=== PATIENT | female | born 1980 | race African-American/Black ===

== ENCOUNTER 2017-10-05 18:45 | Emergency (ER) | payer BC, OTHER ==
--- NOTE | 2017-10-05 19:29 | RAD ---
RIGHT HAND THREE VIEWS: 10/05/17 HISTORY: Trauma to hand. Thumb pain. There are no signs of fracture or dislocation. IMPRESSION: Negative right hand. POS: [facility]
[2017-10-05] MEDS ORDERED: HYDROcodone/Acetaminophen 10/325 mg Tablet ONE (19:42)
== END 2017-10-05 19:46 | disposition home or self-care (01) ==
LOC: MADERS 18:45
DX: S60.221A Contusion of right hand, initial encounter (principal); K21.9 Gastro-esophageal reflux disease without esophagitis; I10 Essential (primary) hypertension; Z79.899 Other long term (current) drug therapy; W22.01XA Walked into wall, initial encounter

== ENCOUNTER 2019-04-09 22:39 | Emergency (ER) | payer BC ==
[2019-04-09] MEDS ORDERED: HYDROcodone/Acetaminophen 10/325 mg Tablet ONE (22:51)
[2019-04-09] MEDS ORDERED: Acetaminophen 325 MG TAB ONE (22:52)
== END 2019-04-09 23:03 | disposition home or self-care (01) ==
LOC: MADERS 22:39
DX: G89.18 Other acute postprocedural pain (principal); M25.531 Pain in right wrist; G47.30 Sleep apnea, unspecified; K21.9 Gastro-esophageal reflux disease without esophagitis; I10 Essential (primary) hypertension; Z79.899 Other long term (current) drug therapy
CPT/HCPCS: 99283

== ENCOUNTER 2019-07-10 22:45 | Emergency (ER) | payer BC | END 2019-07-10 23:08 | disposition home or self-care (01) | LOC: MADERS 22:45 | DX: H92.02 Otalgia, left ear (principal); K21.9 Gastro-esophageal reflux disease without esophagitis; I10 Essential (primary) hypertension; G47.30 Sleep apnea, unspecified; Z79.899 Other long term (current) drug therapy | CPT/HCPCS: 99281 ==

== ENCOUNTER 2019-12-03 23:52 | Emergency (ER) | payer BC ==
--- NOTE | 2019-12-04 08:25 | RAD ---
XR Ankle Lt 3 View STANDARD INDICATION: Left ankle injury COMPARISON: None. FINDINGS: Bones: No acute fracture or subluxation demonstrated. There is moderate enthesopathic change off the posterior and plantar calcaneus Ankle mortise: Symmetric. Talar Dome: Intact. Subtalar joint: Normal. Visualized hindfoot: Normal. Periarticular soft tissues: Normal. IMPRESSION: 1. No acute fracture or subluxation demonstrated.
== END 2019-12-04 00:34 | disposition home or self-care (01) ==
LOC: MADERS 23:52
DX: S93.402A Sprain of unspecified ligament of left ankle, initial encounter (principal); K21.9 Gastro-esophageal reflux disease without esophagitis; I10 Essential (primary) hypertension; Z79.899 Other long term (current) drug therapy; X50.9XXA Other and unspecified overexertion or strenuous movements or postures, initial encounter

== ENCOUNTER 2020-04-08 14:37 | Outpatient (CLI) | payer BC ==
--- NOTE | 2020-04-08 14:59 | RAD ---
Exam: XR Shoulder Lt 3 View STANDARD HISTORY: Shoulder pain for months. No history of trauma. COMPARISON: None FINDINGS: There is minimal left acromioclavicular joint osteoarthritis. No acute fracture, dislocation, or other acute osseous abnormality is identified. IMPRESSION: No acute osseous abnormality is identified.
== END 2020-04-08 14:38 | disposition home or self-care (01) ==
LOC: MADRAD 14:37
PROVIDERS: ATTEND Family Medicine
DX: M54.10 Radiculopathy, site unspecified (principal); M25.512 Pain in left shoulder

== ENCOUNTER 2020-12-25 22:24 | Emergency (ER) | payer BC, MEDICAID ==
[2020-12-25 23:29] LABS: #Lymphocytes 1.7 thou/uL (1.20-3.40); #Monocytes 0.4 thou/uL (0.11-0.59); #Neutrophils 2.2 thou/uL (1.40-6.50); %Basophils 1.1 % (0.0-1.0); %Eosinophils 0.6 % (0.0-10.0); %Lymphocytes 39.7 % (21.0-51.0); %Monocytes 8.5 % (0.0-10.0); %Neutrophils 50.1 % (42.0-75.0); Hemoglobin 13.7 g/dL (12.0-16.0); Mean Corpuscular HGB CONC 32.5 g/dL (32.0-36.0); Mean Corpuscular Hemoglobin 28.5 pg (27.0-31.0); Mean Corpuscular Volume 87.9 fL (78.0-98.0); Mean Platelet Volume 7.7 fL (7.4-10.4); Platelet Count 222 thou/uL (130-400); RBC Distribution Width 12.4 % (11.5-14.5); Red Blood Cell (RBC) Count 4.79 mill/uL (4.20-5.40); White Blood Cell (WBC) Count 4.3 thou/uL (4.8-10.8)
[2020-12-25 23:34] LABS: BHCG - Serum Negative (NEGATIVE); Pregs Control Background? CLEAR/WHITE (CLR/WHITE); Pregs Control Bar Appear? YES (CONTROL BAR)
[2020-12-25 23:49] LABS: ALT (SGPT) 16 U/L (8-55); AST (SGOT) 18 U/L (5-34); Albumin 3.9 g/dL (3.5-5.0); Alkaline Phosphatase 68 U/L (40-110); Anion Gap 15 mmol/L (10-20); BUN (Urea Nitrogen) 15 mg/dL (7.0-18.7); Bilirubin, Total 0.3 mg/dL (0.2-1.2); CK (CPK) 224 U/L (29-168); Calc. Creatinine Clearance 0 mL/min (70-130); Calcium 8.9 mg/dL (7.8-10.44); Carbon Dioxide 26 mmol/L (22-29); Chloride 101 mmol/L (98-107); Globulin 4.4 g/dL (2.4-3.5); Glucose 110 mg/dL (70-105); Lipase 34 U/L (8-78); Potassium 3.1 mmol/L (3.5-5.1); Protein, Total 8.3 g/dL (6.0-8.3); Sodium 139 mmol/L (136-145)
[2020-12-26] MEDS ORDERED: Aspirin Chewable 81 MG TAB ONE (00:18)
[2020-12-26] MEDS ORDERED: Potassium Chloride 20 MEQ TAB ONE (00:18)
== END 2020-12-26 00:30 | disposition home or self-care (01) ==
LOC: MADERS 22:24
DX: R07.9 Chest pain, unspecified (principal); E87.6 Hypokalemia; R42 Dizziness and giddiness; I10 Essential (primary) hypertension; K21.9 Gastro-esophageal reflux disease without esophagitis; G47.30 Sleep apnea, unspecified; Z85.43 Personal history of malignant neoplasm of ovary; Z79.899 Other long term (current) drug therapy
CPT/HCPCS: 71045; 80053; 82550; 83690; 84484; 84703; 85025; 93005; 94760

== ENCOUNTER 2022-06-29 13:29 | Outpatient (CLI) | payer BC | END 2022-06-29 13:30 | disposition home or self-care (01) | LOC: MADRAD 13:29 | PROVIDERS: ATTEND Family Medicine | DX: M54.42 Lumbago with sciatica, left side (principal); M25.552 Pain in left hip; G89.29 Other chronic pain; M16.12 Unilateral primary osteoarthritis, left hip; M47.816 Spondylosis without myelopathy or radiculopathy, lumbar region | CPT/HCPCS: 72100 ==

== ENCOUNTER 2023-06-02 02:20 | Emergency (ER) | payer BC, SELFPAY ==
[2023-06-02] MEDS ORDERED: Bupivacaine PF 0.5% 30 ML VIAL ONE (02:34)
[2023-06-02] MEDS ORDERED: Lidocaine 1% w/Epinephrine 1:100K 20 ML VIAL ONE (02:34)
== END 2023-06-02 02:50 | disposition home or self-care (01) ==
LOC: MADERS 02:20
DX: K08.89 Other specified disorders of teeth and supporting structures (principal); I10 Essential (primary) hypertension; G47.30 Sleep apnea, unspecified; Z79.899 Other long term (current) drug therapy
CPT/HCPCS: 64400; S0020

== ENCOUNTER 2024-03-31 04:58 | Emergency (ER) | payer BC ==
[2024-03-31] MEDS ORDERED: Dexamethasone 10 MG/ML VIAL ONE (05:39)
[2024-03-31] MEDS ORDERED: Ketorolac Tromethamine 30 MG (1 mL) VIAL ONE (05:40)
== END 2024-03-31 06:03 | disposition home or self-care (01) ==
LOC: MADERS 04:58
DX: J02.9 Acute pharyngitis, unspecified (principal); I10 Essential (primary) hypertension; Z79.899 Other long term (current) drug therapy
CPT/HCPCS: 87081; 87430; 96372; 99283; J1100; J1885

== ENCOUNTER 2024-04-02 18:11 | Emergency (ER) | payer BC ==
[2024-04-02] MEDS ORDERED: Sodium Chloride 0.9% 1,000 ML ONE (19:32)
[2024-04-02] MEDS ORDERED: Acetaminophen 500 MG TAB ONE (19:32)
[2024-04-02 19:39] LABS: #Eosinphils 0.1 thou/uL (0.0-0.7); #Lymphocytes 2.1 thou/uL (1.20-3.40); #Monocytes 0.7 thou/uL (0.11-0.59); #Neutrophils 3.8 thou/uL (1.40-6.50); %Basophils 0.7 % (0.0-1.0); %Eosinophils 2.2 % (0.0-10.0); %Lymphocytes 30.9 % (21.0-51.0); %Monocytes 10.2 % (0.0-10.0); %Neutrophils 56.1 % (42.0-75.0); Hematocrit 35.9 % (36.0-47.0); Hemoglobin 11.4 g/dL (12.0-16.0); Mean Corpuscular HGB CONC 31.8 g/dL (32.0-36.0); Mean Corpuscular Hemoglobin 29.2 pg (27.0-31.0); Mean Corpuscular Volume 92.1 fl (78.0-98.0); Mean Platelet Volume 6.7 fL (7.4-10.4); Platelet Count 193 10x3/uL (130-400); RBC Distribution Width 12.8 % (11.5-14.5); White Blood Cell (WBC) Count 6.8 10x3/uL (4.8-10.8)
[2024-04-02 19:51] LABS: BHCG - Serum Negative (NEGATIVE); Pregs Control Background? CLEAR/WHITE (CLR/WHITE); Pregs Control Bar Appear? YES (CONTROL BAR)
[2024-04-02 19:56] LABS: ALT (SGPT) 15 U/L (8-55); AST (SGOT) 16 U/L (5-34); Albumin 3.5 g/dL (3.5-5.0); Alkaline Phosphatase 60 U/L (40-110); Anion Gap 12 mmol/L (10-20); BUN (Urea Nitrogen) 15 mg/dL (7.0-18.7); Bilirubin, Total 0.2 mg/dL (0.2-1.2); Calc. Creatinine Clearance 0 mL/min (70-130); Calcium 8.4 mg/dL (7.8-10.44); Carbon Dioxide 24 mmol/L (22-29); Chloride 105 mmol/L (98-107); Estimated GFR 95; Globulin 3.5 g/dL (2.4-3.5); Glucose 86 mg/dL (70-105); Magnesium 1.9 mg/dL (1.6-2.6); Potassium 3.2 mmol/L (3.5-5.1); Sodium 138 mmol/L (136-145)
[2024-04-02] MEDS ORDERED: Potassium Chloride 20 MEQ TAB ONE (20:00)
== END 2024-04-02 20:52 | disposition home or self-care (01) ==
LOC: MADERS 18:11
DX: E86.0 Dehydration (principal); E87.6 Hypokalemia; F43.0 Acute stress reaction; K21.9 Gastro-esophageal reflux disease without esophagitis; I10 Essential (primary) hypertension; Z79.899 Other long term (current) drug therapy
CPT/HCPCS: 36416; 80053; 83735; 83880; 84703; 85025; 93005; 96360; J7050

== ENCOUNTER 2024-11-24 10:55 | Outpatient (CLI) | payer BC, OTHER | END 2024-11-24 10:56 | disposition home or self-care (01) | LOC: MADRAD 10:55 | PROVIDERS: ATTEND Nurse Practitioner Family | DX: M25.562 Pain in left knee (principal) ==